=== PATIENT | female | born 1950 | race Two or more races ===

== ENCOUNTER 2016-07-02 07:43 | Day surgery (SDC) | payer BC, MEDICARE ==
[2016-07-02] MEDS ORDERED: Sodium Chloride 0.9% 10 ML Syringe FLUSH PRN (08:00)
[2016-07-02 10:08] VITALS: BP 127/75
--- NOTE | 2016-07-02 14:37 | OR ---
DATE OF PROCEDURE: 07/02/2016 POSTOPERATIVE CARE: Postoperative care will be provided mainly at the [address] [place] [address] [facility] in conjunction with [facility]. PREOPERATIVE DIAGNOSIS: Cataract, right eye. PREOPERATIVE DIAGNOSIS: Cataract, right eye. PROCEDURE: Phacoemulsification with intraocular lens placement, right eye. ANESTHESIA: Topical and intracameral. ESTIMATED BLOOD LOSS: Minimal. COMPLICATIONS: None. PATHOLOGY SPECIMENS: None. SURGICAL FINDINGS: None. INDICATION FOR PROCEDURE: The patient is a 66-year-old female with history of a visually significant cataract in the right eye, which interfered with activities of daily living. This consisted of a nuclear sclerosis cataract. Following careful discussion of the risks, benefits and alternatives to cataract extraction with intraocular lens placement including blindness and , the patient elected to proceed, and informed, written consent was obtained prior to the procedure. DESCRIPTION OF THE PROCEDURE: The patient was previously identified, and a terri placed above the right eye. All sources, including the patient, indicated that the right eye was the correct eye. The patient was subsequently taken to the operating room where standard monitors were applied. The patient was then prepped and draped in the usual sterile fashion for ophthalmic surgery. Attention was first directed at the 12 o'clock position where a paracentesis port was fashioned. Shugar solution followed by Viscoat was instilled into the eye. Attention was then directed to the 8:30 position where a triplanar incision was made in a near-clear manner using a keratome. A continuous capsulorrhexis was then made using a combination of the cystotome and Utrata forceps. Hydrodissection was achieved using a balanced salt solution, and the lens rotated nicely. Phacoemulsification was then done using a modified [id number] technique without complication. Phaco time was 15.41 CDE. The remaining cortex was removed using the irrigation/aspiration handpiece. Provisc was then instilled into the eye. A Technis lens, model LE1108, at 20.0 diopters was then placed in the capsular bag using an [place] injector. The remaining viscoelastic was removed using the irrigation/aspiration forceps. All wounds were then checked and found to be watertight. The lid speculum and drapes were removed. Maxitrol ointment was placed in the patient's right eye, and the eye was shielded. The patient tolerated the procedure well. The patient was instructed to follow up tomorrow. All needle and sponge counts were correct at the end of the procedure. Amber Fulton MD /[id number]
== END 2016-07-02 11:00 | disposition home or self-care (01) ==
LOC: JP.SDS 07:43
PROVIDERS: ATTEND Ophthalmology
DX: H26.9 Unspecified cataract (principal); Z87.891 Personal history of nicotine dependence
CPT/HCPCS: 66984; C1780; J7050

== ENCOUNTER 2019-03-11 16:50 | Emergency (ER) | payer MEDICARE ==
[2019-03-11 17:31] VITALS: BP 117/74; PULSE 68
--- NOTE | 2019-03-11 18:30 | CRLCR ---
HISTORY: Shortness of breath. Productive cough. TECHNIQUE: Two-view chest. COMPARISON: None. FINDINGS: No airspace consolidation. No pleural effusion or pneumothorax. Pulmonary vasculature and cardiomediastinal silhouette are within normal limits. IMPRESSION: No cardiopulmonary abnormality. Dictated by Jhoan Zendejas MD @ Mar 11 2019 6:28PM Signed by Dr. Jhoan Zendejas @ Mar 11 2019 6:29PM
--- NOTE | 2019-03-11 18:34 | EDM.PDOC ---
ED HPI GENERAL MEDICAL PROBLEM - General Chief Complaint: Respiratory Problem Stated Complaint: SOB, COUGHING, HEADACHE, SINUS DRIP Time Seen by Provider: 03/11/19 18:29 Source of Information: Reports: Patient History Limitations: Reports: No Limitations - History of Present Illness INITIAL COMMENTS - FREE TEXT/NARRATIVE: pt has been ill for 10 days . She has had a markd cough and is raising yellow sputum She has still been coughing alot. She recently has not had a fever. Onset: Gradual Duration: Day(s): Location: Reports: Chest Associated Symptoms: Reports: Cough, Diaphoresis, Fever/Chills, Other (pt has felt very ill. ) Headache Pain Score (Numeric/FACES): 9 - Related Data Allergies Allergy/AdvReac Type Severity Reaction Status Date / Time No Known Allergies Allergy Verified 07/02/16 08:24 Home Meds: Home Meds Albuterol Sulfate [Proair Hfa] 2 puff IH Q6H PRN 06/29/16 [History] diphenhydrAMINE [Benadryl] 25 mg PO ASDIRECTED PRN 03/11/19 [History] guaiFENesin [Mucinex] 600 mg PO Q12H PRN 03/11/19 [History] Past Medical History HEENT History: Reports: Cataract Respiratory History: Reports: Asthma Genitourinary History: Reports: None [employer] History: Reports: Endocrine/Metabolic History: Reports: None Dermatologic History: Reports: None - Infectious Disease History Infectious Disease History: Reports: Chicken Pox, Measles, Mumps, Rubella, Shingles - Past Surgical History HEENT Surgical History: Reports: Adenoidectomy Respiratory Surgical History: Reports: None Female Surgical History: Reports: Breast Biopsy, Tubal Ligation Dermatological Surgical History: Reports: Other (See Below) Social & Family History - Tobacco Use Smoking Status *Q: Never Smoker - Caffeine Use Caffeine Use: Reports: Coffee, Tea - Recreational Drug Use Recreational Drug Use: No ED ROS GENERAL - Review of Systems Review Of Systems: See Below Constitutional: Reports: Fever, Chills, Malaise, Weakness, Decreased Appetite, Other (pt has been pushing fluids) HEENT: Reports: No Symptoms Respiratory: Reports: Shortness of Breath, Wheezing, Cough, Other (pt has nebs that she is using at home. ) Cardiovascular: Reports: No Symptoms Endocrine: Reports: No Symptoms GI/Abdominal: Reports: No Symptoms : Reports: No Symptoms Musculoskeletal: Reports: No Symptoms Skin: Reports: No Symptoms ED EXAM, GENERAL - Physical Exam Exam: See Below Free Text/Narrative:: pt arrived with a cough and raising yellow-green sputum. Exam Limited By: No Limitations General Appearance: Alert, Anxious, Mild Distress Ears: Normal TMs Nose: Normal Inspection Throat/Mouth: Normal Inspection Head: Atraumatic Neck: Normal Inspection Respiratory/Chest: No Respiratory Distress, Decreased Breath Sounds, Wheezing Cardiovascular: Regular Rate, Rhythm GI/Abdominal: Soft, Non-Tender (Female) Exam: Deferred Rectal (Female) Exam: Deferred Course - Vital Signs Last Recorded V/S: Last Vital Signs Temp 36.3 C 03/11/19 17:35 Pulse 68 03/11/19 17:35 Resp 22 H 03/11/19 17:29 BP 117/74 03/11/19 17:35 Pulse Ox 96 03/11/19 17:35 - Orders/Labs/Meds Orders: Active Orders 24 hr Category Date Time Status INFLUENZA A+B AG SCREEN [RM] Stat Lab 03/11/19 18:35 Ordered Labs: Laboratory Tests 03/11/19 03/11/19 03/11/19 Range/Units 18:06 18:06 18:15 WBC 4.8 (4.5-11.0) K/uL RBC 4.79 (3.30-5.50) M/uL Hgb 13.5 (12.0-15.0) g/dL Hct 43.3 (36.0-48.0) % MCV 90 (80-98) fL MCH 28 (27-31) pg MCHC 31 L (32-36) % Plt Count 243 (150-400) K/uL Neut % (Auto) 47 (36-66) % Lymph % (Auto) 37 (24-44) % [place] % (Auto) 11 H (2-6) % Eos % (Auto) 5 H (2-4) % Baso % (Auto) 1 (0-1) % Sodium 137 L (140-148) mmol/L Potassium 4.0 (3.6-5.2) mmol/L Chloride 101 (100-108) mmol/L Carbon Dioxide 28 (21-32) mmol/L Anion Gap 12.0 (5.0-14.0) mmol/L BUN 11 (7-18) mg/dL Creatinine 0.6 (0.6-1.0) mg/dL Est Cr Clr Drug Dosing 74.32 mL/min Estimated GFR (MDRD) > 60 (>60) Glucose 96 (74-106) mg/dL Calcium 8.9 (8.5-10.1) mg/dL Total Bilirubin 0.3 (0.2-1.0) mg/dL AST 26 (15-37) U/L ALT 30 (12-78) U/L Alkaline Phosphatase 75 (46-116) U/L C-Reactive Protein 0.24 (0.0-0.3) mg/dL Total Protein 7.6 (6.4-8.2) g/dL Albumin 3.8 (3.4-5.0) g/dL Globulin 3.8 H (2.3-3.5) g/dL Albumin/Globulin Ratio 1.0 L (1.2-2.2) - Re-Assessments/Exams Free Text/Narrative Re-Assessment/Exam: 03/11/19 18:37 chest xray is clear, her wbc is low. She is now coughing up very purulent sputum. Departure - Departure Time of Disposition: 18:41 Disposition: Home, Self-Care 01 Condition: Fair Clinical Impression: Bronchitis - Discharge Information Referrals: Micki Shin PA [Primary Care Provider] - Forms: ED Department Discharge Care Plan Goals: cool mist humidifier, tylenol and motrin zithromax for possible secondary infection Sepsis Event Note - Evaluation Sepsis Screening Result: No Definite Risk - Focused Exam Vital Signs: Vital Signs Temp Pulse Resp BP Pulse Ox 03/11/19 17:35 36.3 C 68 117/74 96 03/11/19 17:29 36.3 C 68 22 H 117/74 96 Date Exam was Performed: 03/11/19 Time Exam was Performed: 18:37 - My Orders Last 24 Hours: My Active Orders 03/11/19 18:35 INFLUENZA A+B AG SCREEN [RM] Stat - Assessment/Plan Last 24 Hours: My Active Orders 03/11/19 18:35 INFLUENZA A+B AG SCREEN [RM] Stat
== END 2019-03-11 19:10 | disposition home or self-care (01) ==
LOC: JP.ED 16:50
DX: J40 Bronchitis, not specified as acute or chronic (principal); Z79.899 Other long term (current) drug therapy
CPT/HCPCS: 36415; 71046; 80053; 85025; 86140; 87804; 87804-59; 99284-25

== ENCOUNTER 2022-03-06 16:08 | Emergency (ER) | payer OTHER ==
[2022-03-06 16:48] VITALS: BP 131/51; PULSE 51
[2022-03-06] MEDS ORDERED: HYDROmorphone 0.5 MG/0.5 ML Syringe IVPUSH ONE (16:56)
[2022-03-06] MEDS ORDERED: Sodium Chloride 0.9% 10 ML Syringe FLUSH PRN (16:56)
[2022-03-06] MEDS ORDERED: Ondansetron 4 MG/2 ML SDV IVPUSH ONE ×2 (16:56→18:35)
[2022-03-06] MEDS ORDERED: Sodium Chloride 0.9% 1,000 ML IV SCH (17:00)
[2022-03-06 17:32] LABS: ESTIMATED GFR 92 mL/min (>60)
[2022-03-06] MEDS ORDERED: Sodium Chloride 0.9% 75 ML IV SCH (17:45)
[2022-03-06] MEDS ORDERED: Iopamidol 612 MG/ML 100 ML Bottle IV SCH (17:45)
== END 2022-03-06 19:52 | disposition home or self-care (01) ==
LOC: JP.ED 16:08
DX: K83.1 Obstruction of bile duct (principal); E87.6 Hypokalemia; N94.89 Other specified conditions associated with female genital organs and menstrual cycle; K76.89 Other specified diseases of liver; J45.909 Unspecified asthma, uncomplicated; Z79.899 Other long term (current) drug therapy; Z20.822 Contact with and (suspected) exposure to COVID-19
CPT/HCPCS: 36415; 74177; 80053; 81001; 82803; 83605; 83690; 85025; 87635; 96361; 96374; 99284; J1170; J2405; J3490; J7030; Q9967; U0002